=== PATIENT | male | born 1945 | race Caucasian/White ===

== ENCOUNTER 2017-12-30 01:56 | Inpatient (IN) ==
[2017-12-30] MEDS ORDERED: ENOXAPARIN 100 MG/ML SYRINGE SUBCUT STA (02:05)
[2017-12-30] MEDS ORDERED: ASPIRIN 325 MG TABLET PO STA (02:05)
[2017-12-30] MEDS ORDERED: ACETAMINOPHEN 120 MG SUPP RECTAL ONE (04:14)
[2017-12-30 06:16] LABS: Basophils % 0.5 % (0.0-0.8); Eosinophils # 0.2 10*3/uL (0.0-0.87); Hematocrit 42.4 VOL% (42.0-52.0); Hemoglobin 14.4 GM/DL (14.0-18.0); Immature Granulocytes % 0.1 %; Immature Granulocytes Absolute 0.01 #; Lymphocytes % 27.5 % (21.2-54.2); Mean Corpuscular Hemoglobin 31 PG (27-34); Mean Corpuscular Volume 90.6 FL (87-102); Mean Platelet Volume 11.4 FL (9.6-12.0); Monocytes # 0.5 10*3/uL (0.11-0.8); Neutrophils # 4.6 10*3/uL (1.4-7.4); Neutrophils % 62.9 % (38.7-73.9); Platelet Count 171 T/CUMM (130-400); Red Blood Count 4.68 MC/CUMM (3.8-5.5); White Blood Count 7.4 T/CUMM (4-12)
[2017-12-30 06:52] LABS: Calcium 8.1 MG/DL (8.5-10.1); Osmolality,Calculated 283.1 MOS/KG (273-304); Potassium 3.7 MMOL/L (3.5-5.1)
[2017-12-30] MEDS: LISINOPRIL 10 MG TABLET PO SCH (08:18)
[2017-12-30] MEDS: GABAPENTIN 300 MG CAPSULE PO SCH ×2 (08:18→20:34)
[2017-12-30] MEDS ORDERED: ENOXAPARIN 100 MG/ML SYRINGE SUBCUT SCH (09:00)
[2017-12-30 09:50] LABS: CKMB % 2.5 %
[2017-12-30 09:51] LABS: Troponin I Only 0.156 NG/ML (0.00-0.045)
[2017-12-30 12:07] LABS: CKMB % 2.5 %
[2017-12-30 12:14] LABS: Troponin I Only 0.155 NG/ML (0.00-0.045)
[2017-12-30] MEDS ORDERED: WARFARIN 5 MG TABLET PO SCH (18:00)
[2017-12-30] MEDS ORDERED: ASPIRIN EC 325 MG TABLET PO SCH (21:00)
[2017-12-30] MEDS ORDERED: ATORVASTATIN 20 MG TABLET PO SCH (21:00)
[2017-12-31 07:55] VITALS: BP 173/79
[2017-12-31] MEDS ORDERED: PANTOPRAZOLE 40 MG TABLET PO SCH (09:00)
[2017-12-31] MEDS: LISINOPRIL 10 MG TABLET PO SCH (09:00)
[2017-12-31] MEDS ORDERED: VITAMIN E 400 UNIT CAPSULE PO SCH (09:00)
[2017-12-31] MEDS: GABAPENTIN 300 MG CAPSULE PO SCH (09:01)
[2017-12-31] MEDS ORDERED: WARFARIN 2.5 MG TABLET PO SCH (18:00)
== END 2017-12-31 10:14 | disposition home or self-care (01) | DRG 313 ==
LOC: EDUNIT# → EDBD → N.ED 01:56 → N.EDINP 03:32 → N.TELEN 04:16
PROVIDERS: ADMIT Internal Medicine; ATTEND Internal Medicine

== ENCOUNTER 2019-09-14 15:19 | Inpatient (IN) ==
[2019-09-14] MEDS ORDERED: PANTOPRAZOLE 40 MG VIAL IV STA (15:52)
[2019-09-14 16:14] LABS: Basophils % 0.3 % (0.0-0.8); Eosinophils # 0.1 10*3/uL (0.0-0.87); Eosinophils % 0.9 % (0.00-10.9); Hematocrit 37.9 VOL% (42.0-52.0); Hemoglobin 12.3 GM/DL (14.0-18.0); Immature Granulocytes % 0.5 %; Immature Granulocytes Absolute 0.06 #; Lymphocytes # 1.4 10*3/uL (1.4-4.0); Lymphocytes % 11.6 % (21.2-54.2); Mean Corpuscular HGB Conc 32.5 GM/DL (32-36); Mean Corpuscular Volume 97.4 FL (87-102); Mean Platelet Volume 11.5 FL (9.6-12.0); Monocytes % 6.1 % (1.7-12.7); Neutrophils % 80.6 % (38.7-73.9); Platelet Count 168 T/CUMM (130-400); Red Blood Count 3.89 MC/CUMM (3.8-5.5); Red Cell Distribution Width 12.8 % (9.3-17.3); White Blood Count 11.6 T/CUMM (4-12)
[2019-09-14 16:26] LABS: INR 2.8
[2019-09-14 16:29] LABS: PT Patient Result 30.5 SECS (9.6-12.2)
[2019-09-14 16:43] LABS: Alanine Aminotransferase 24 U/L (16-61); Alkaline Phosphatase 59 U/L (45-117); Aspartate Amino Transferase 18 U/L (0-37); Bilirubin,Total < 0.39 MG/DL (0.2-1.0); Blood Urea Nitrogen 54 MG/DL (7-18); Calcium 8.4 MG/DL (8.5-10.1); Estimated Glom Filtration Rate 88 ML/MIN; Glucose 121 MG/DL (74-106); Osmolality,Calculated 296.3 MOS/KG (273-304); Total Protein 5.8 G/DL (6.4-8.3)
[2019-09-14] MEDS ORDERED: LACTATED RINGERS 500 ML IV ONE (16:54)
[2019-09-14] MEDS ORDERED: SODIUM CHLORIDE 0.9% 1,000 ML IV PRN (18:05)
[2019-09-14] MEDS ORDERED: ONDANSETRON 4 MG/2 ML VIAL IV PRN (18:11)
[2019-09-14] MEDS: SODIUM CHLORIDE 0.9% 1,000 ML IV SCH (20:03)
[2019-09-14] MEDS: PANTOPRAZOLE 40 MG VIAL IV SCH (21:06)
[2019-09-14] MEDS: METOCLOPRAMIDE 10 MG/2 ML VIAL IV SCH (21:07)
[2019-09-14] MEDS: ATORVASTATIN 20 MG TABLET PO SCH (21:08)
[2019-09-14] MEDS: GABAPENTIN 300 MG CAPSULE PO SCH (21:08)
[2019-09-14 21:24] LABS: Hemoglobin 11.8 GM/DL (14.0-18.0)
[2019-09-14 22:59] LABS: Apearance,Urine CLEAR (Clear); Bilirubin,Urine Negative (Negative); Blood, Urine Negative (Negative); Glucose,Urine (UA) Negative (Negative); Ketones,Urine Negative (Negative); Mucus,Urine Occasional /LPF (Occasional); Nitrite,Urine Negative (Negative); Protein,Urine Negative; RBC,Urine 1 /HPF (0-4); Urine Color Straw (Yellow); Urine Specific Gravity 1.017 (1.001-1.035); Urine Urobilinogen < 2.0 EU/DL (0.2-1.0); WBC,Urine <1 /HPF (0-6)
[2019-09-15] MEDS: METOCLOPRAMIDE 10 MG/2 ML VIAL IV SCH ×2 (02:21→10:00)
[2019-09-15 04:52] LABS: Basophils % 0.5 % (0.0-0.8); Eosinophils # 0.1 10*3/uL (0.0-0.87); Eosinophils % 1.9 % (0.00-10.9); Hemoglobin 10.3 GM/DL (14.0-18.0); Immature Granulocytes % 0.2 %; Immature Granulocytes Absolute 0.01 #; Lymphocytes # 2.1 10*3/uL (1.4-4.0); Lymphocytes % 36.8 % (21.2-54.2); Mean Corpuscular HGB Conc 32.2 GM/DL (32-36); Mean Platelet Volume 11.6 FL (9.6-12.0); Monocytes % 6.7 % (1.7-12.7); Neutrophils % 53.9 % (38.7-73.9); Platelet Count 166 T/CUMM (130-400); Red Cell Distribution Width 13.1 % (9.3-17.3); White Blood Count 5.7 T/CUMM (4-12)
[2019-09-15 05:12] LABS: INR 1.9; PT Patient Result 20.1 SECS (9.6-12.2)
[2019-09-15 05:29] LABS: Albumin 2.9 G/DL (3.4-5.0); Bilirubin,Total 0.7 MG/DL (0.2-1.0); Calcium 8.2 MG/DL (8.5-10.1); Risk Ratio 3.86; Thyroid Stimulating Hormone 0.65 uIU/ml (0.358-3.74); Total Protein 5.7 G/DL (6.4-8.3)
[2019-09-15] MEDS: GABAPENTIN 300 MG CAPSULE PO SCH ×2 (10:00→21:17)
[2019-09-15] MEDS: PANTOPRAZOLE 40 MG VIAL IV SCH ×2 (10:03→21:17)
[2019-09-15] MEDS: SODIUM CHLORIDE 0.9% 1,000 ML IV SCH ×3 (10:04→21:20)
[2019-09-15] MEDS ORDERED: propofoL 200 MG/20 ML VIAL IV ONE (12:35)
[2019-09-15] MEDS ORDERED: LIDOCAINE 2% 5 ML VIAL ONE (12:36)
[2019-09-15 15:13] LABS: Hematocrit 34.7 VOL% (42.0-52.0)
[2019-09-15] MEDS: ATORVASTATIN 20 MG TABLET PO SCH (21:17)
[2019-09-15 21:24] LABS: Hematocrit 29.9 VOL% (42.0-52.0); Hemoglobin 9.5 GM/DL (14.0-18.0)
[2019-09-16] MEDS: SODIUM CHLORIDE 0.9% 1,000 ML IV SCH ×3 (01:43→17:06)
[2019-09-16 06:48] LABS: Basophils % 0.8 % (0.0-0.8); Eosinophils # 0.3 10*3/uL (0.0-0.87); Eosinophils % 5.3 % (0.00-10.9); Hematocrit 31.3 VOL% (42.0-52.0); Hemoglobin 9.8 GM/DL (14.0-18.0); Immature Granulocytes % 0.2 %; Immature Granulocytes Absolute 0.01 #; Lymphocytes # 1.7 10*3/uL (1.4-4.0); Mean Corpuscular HGB Conc 31.3 GM/DL (32-36); Mean Corpuscular Volume 99.1 FL (87-102); Mean Platelet Volume 11.5 FL (9.6-12.0); Monocytes % 5.9 % (1.7-12.7); Neutrophils % 53.8 % (38.7-73.9); Platelet Count 156 T/CUMM (130-400); Red Blood Count 3.16 MC/CUMM (3.8-5.5); Red Cell Distribution Width 13.2 % (9.3-17.3); White Blood Count 5.1 T/CUMM (4-12)
[2019-09-16 07:01] LABS: INR 2.1
[2019-09-16 07:06] LABS: PT Patient Result 22.5 SECS (9.6-12.2)
[2019-09-16 07:22] LABS: Albumin 2.9 G/DL (3.4-5.0); Bilirubin,Total 1.3 MG/DL (0.2-1.0); Calcium 8.3 MG/DL (8.5-10.1); Total Protein 5.6 G/DL (6.4-8.3)
[2019-09-16] MEDS: PANTOPRAZOLE 40 MG VIAL IV SCH ×2 (08:59→21:28)
[2019-09-16] MEDS: GABAPENTIN 300 MG CAPSULE PO SCH ×2 (08:59→21:28)
[2019-09-16] MEDS ORDERED: BISACODYL 5 MG TABLET PO ONE (12:00)
[2019-09-16] MEDS ORDERED: POLYETHYLENE GLYCOL POWDER 255 GM BOTTLE PO ONE (18:00)
[2019-09-16] MEDS: ATORVASTATIN 20 MG TABLET PO SCH (21:28)
[2019-09-17] MEDS: SODIUM CHLORIDE 0.9% 1,000 ML IV SCH ×2 (03:45→13:55)
[2019-09-17 04:26] LABS: Basophils % 0.6 % (0.0-0.8); Eosinophils # 0.2 10*3/uL (0.0-0.87); Hematocrit 30.7 VOL% (42.0-52.0); Hemoglobin 9.8 GM/DL (14.0-18.0); Immature Granulocytes % 0.2 %; Immature Granulocytes Absolute 0.01 #; Lymphocytes % 38.5 % (21.2-54.2); Mean Corpuscular HGB Conc 31.9 GM/DL (32-36); Mean Corpuscular Volume 97.8 FL (87-102); Mean Platelet Volume 11.2 FL (9.6-12.0); Monocytes % 6.7 % (1.7-12.7); Platelet Count 158 T/CUMM (130-400); Red Blood Count 3.14 MC/CUMM (3.8-5.5); Red Cell Distribution Width 13.1 % (9.3-17.3); White Blood Count 5.2 T/CUMM (4-12)
[2019-09-17 04:38] LABS: PT Patient Result 22.1 SECS (9.6-12.2)
[2019-09-17 04:43] LABS: Albumin 3.2 G/DL (3.4-5.0); Bilirubin,Total 1.3 MG/DL (0.2-1.0); Calcium 8.2 MG/DL (8.5-10.1); Osmolality,Calculated 285.8 MOS/KG (273-304); Total Protein 5.9 G/DL (6.4-8.3)
[2019-09-17] MEDS ORDERED: MORPHINE 4 MG/1 ML VIAL IV PRN (08:33)
[2019-09-17] MEDS: GABAPENTIN 300 MG CAPSULE PO SCH ×2 (09:15→21:43)
[2019-09-17] MEDS: PANTOPRAZOLE 40 MG VIAL IV SCH ×2 (09:15→21:44)
[2019-09-17] MEDS ORDERED: POLYETHYLENE GLYCOL POWDER 255 GM BOTTLE PO ONE (09:30)
[2019-09-17] MEDS: ATORVASTATIN 20 MG TABLET PO SCH (21:43)
[2019-09-18] MEDS: SODIUM CHLORIDE 0.9% 1,000 ML IV SCH ×3 (00:29→23:18)
[2019-09-18 04:43] LABS: Basophils % 0.7 % (0.0-0.8); Eosinophils # 0.2 10*3/uL (0.0-0.87); Eosinophils % 4.4 % (0.00-10.9); Hematocrit 26.7 VOL% (42.0-52.0); Hemoglobin 8.5 GM/DL (14.0-18.0); Immature Granulocytes % 0.2 %; Immature Granulocytes Absolute 0.01 #; Lymphocytes # 1.8 10*3/uL (1.4-4.0); Mean Corpuscular HGB Conc 31.8 GM/DL (32-36); Mean Corpuscular Volume 98.2 FL (87-102); Mean Platelet Volume 11.6 FL (9.6-12.0); Monocytes % 6.4 % (1.7-12.7); Neutrophils % 49.3 % (38.7-73.9); Platelet Count 152 T/CUMM (130-400); Red Blood Count 2.72 MC/CUMM (3.8-5.5); Red Cell Distribution Width 13.3 % (9.3-17.3); White Blood Count 4.5 T/CUMM (4-12)
[2019-09-18 04:58] LABS: INR 2.1
[2019-09-18 05:01] LABS: PT Patient Result 22.8 SECS (9.6-12.2)
[2019-09-18 05:22] LABS: Calcium 7.9 MG/DL (8.5-10.1); Osmolality,Calculated 288.6 MOS/KG (273-304)
[2019-09-18] MEDS ORDERED: LACTATED RINGERS 1,000 ML IV SCH (08:00)
[2019-09-18] MEDS: PANTOPRAZOLE 40 MG VIAL IV SCH ×2 (08:39→20:26)
[2019-09-18] MEDS: GABAPENTIN 300 MG CAPSULE PO SCH ×2 (08:41→20:26)
[2019-09-18] MEDS ORDERED: propofoL 200 MG/20 ML VIAL IV ONE (09:00)
[2019-09-18] MEDS ORDERED: LIDOCAINE 2% 5 ML VIAL ONE (09:00)
[2019-09-18 10:42] LABS: INR 1.9; PT Patient Result 20.7 SECS (9.6-12.2)
[2019-09-18 14:35] LABS: INR 1.8; PT Patient Result 19.9 SECS (9.6-12.2)
[2019-09-18] MEDS ORDERED: HEPARIN DRIP 25,000 UNITS/500 ML PREMIX IV SCH (16:00)
[2019-09-18] MEDS ORDERED: WARFARIN 10 MG TABLET PO ONE (18:00)
[2019-09-18] MEDS: ATORVASTATIN 20 MG TABLET PO SCH (20:25)
[2019-09-19 05:21] LABS: Basophils % 0.4 % (0.0-0.8); Eosinophils # 0.2 10*3/uL (0.0-0.87); Eosinophils % 3.7 % (0.00-10.9); Hematocrit 24.6 VOL% (42.0-52.0); Immature Granulocytes % 0.4 %; Immature Granulocytes Absolute 0.02 #; Lymphocytes # 1.6 10*3/uL (1.4-4.0); Lymphocytes % 30.2 % (21.2-54.2); Mean Corpuscular HGB Conc 32.5 GM/DL (32-36); Mean Corpuscular Volume 96.9 FL (87-102); Mean Platelet Volume 11.7 FL (9.6-12.0); Monocytes % 5.9 % (1.7-12.7); Neutrophils % 59.4 % (38.7-73.9); Platelet Count 136 T/CUMM (130-400); Red Blood Count 2.54 MC/CUMM (3.8-5.5); Red Cell Distribution Width 13.4 % (9.3-17.3); White Blood Count 5.4 T/CUMM (4-12)
[2019-09-19 05:27] LABS: INR 1.8; PT Patient Result 19.4 SECS (9.6-12.2)
[2019-09-19 05:54] LABS: Calcium 7.9 MG/DL (8.5-10.1); Osmolality,Calculated 285.8 MOS/KG (273-304)
[2019-09-19 07:56] VITALS: BP 123/57
[2019-09-19] MEDS: PANTOPRAZOLE 40 MG VIAL IV SCH (08:42)
[2019-09-19] MEDS: GABAPENTIN 300 MG CAPSULE PO SCH (08:42)
[2019-09-19] MEDS: SODIUM CHLORIDE 0.9% 1,000 ML IV SCH (11:24)
[2019-09-19] MEDS ORDERED: WARFARIN 2.5 MG TABLET PO SCH (18:00)
== END 2019-09-19 11:23 | disposition home or self-care (01) | DRG 813 ==
LOC: EDUNIT# → EDBD → N.ED 15:19 → SUATTDRO 17:33 → N.EDINP 17:33 → N.2E 18:59
PROVIDERS: ADMIT Internal Medicine; ATTEND Internal Medicine

== ENCOUNTER 2020-03-10 07:43 | Inpatient (IN) ==
[2020-03-10] MEDS ORDERED: ONDANSETRON 4 MG/2 ML VIAL IV STA (08:08)
[2020-03-10] MEDS ORDERED: PANTOPRAZOLE 40 MG VIAL IV STA (08:08)
[2020-03-10] MEDS ORDERED: SODIUM CHLORIDE 0.9% 1,000 ML IV STA (08:08)
[2020-03-10 08:18] LABS: Basophils % 0.4 % (0.0-0.8); Eosinophils % 0.4 % (0.00-10.9); Hematocrit 32.1 VOL% (42.0-52.0); Hemoglobin 10.1 GM/DL (14.0-18.0); Immature Granulocytes % 0.4 %; Immature Granulocytes Absolute 0.04 #; Lymphocytes # 1.4 10*3/uL (1.4-4.0); Lymphocytes % 13.8 % (21.2-54.2); Mean Corpuscular HGB Conc 31.5 GM/DL (32-36); Mean Corpuscular Volume 96.7 FL (87-102); Mean Platelet Volume 11.7 FL (9.6-12.0); Monocytes % 4.5 % (1.7-12.7); Neutrophils % 80.5 % (38.7-73.9); Platelet Count 170 T/CUMM (130-400); Red Blood Count 3.32 MC/CUMM (3.8-5.5); Red Cell Distribution Width 15.2 % (9.3-17.3); White Blood Count 10.5 T/CUMM (4-12)
[2020-03-10 08:29] LABS: INR 3.5; PT Patient Result 35.6 SECS (9.8-11.9); Partial Thromboplastin Time 27.6 SECS (23.9-33.8)
[2020-03-10 08:47] LABS: Bilirubin,Total 0.4 MG/DL (0.2-1.0); Calcium 8.3 MG/DL (8.5-10.1); Total Protein 5.8 G/DL (6.4-8.3)
[2020-03-10] MEDS ORDERED: hydrALAZINE 20 MG/1 ML VIAL IV PRN (11:19)
[2020-03-10] MEDS ORDERED: DEXTROSE 50% 25 GM/50 ML VIAL IV PRN (11:19)
[2020-03-10] MEDS ORDERED: ACETAMINOPHEN 325 MG TABLET PO PRN (11:19)
[2020-03-10] MEDS ORDERED: GLUCAGON 1 MG VIAL IM PRN (11:19)
[2020-03-10] MEDS ORDERED: DOCUSATE SODIUM 100 MG CAPSULE PO PRN (11:19)
[2020-03-10] MEDS ORDERED: guaiFENesin/DM ER 600-30 MG TABLET PO PRN (11:19)
[2020-03-10] MEDS ORDERED: ONDANSETRON 4 MG/2 ML VIAL IV PRN (11:19)
[2020-03-10] MEDS ORDERED: GABAPENTIN 300 MG CAPSULE PO PRN (11:24)
[2020-03-10] MEDS ORDERED: DEXTROSE 5% NACL 0.45% 1,000 ML IV SCH (11:30)
[2020-03-10 12:07] LABS: Risk Ratio 3.19; Thyroid Stimulating Hormone 2.23 uIU/ml (0.358-3.74); VLDL CHOLESTEROL 29.8 MG/DL
[2020-03-10 13:50] LABS: Hematocrit 30.7 VOL% (42.0-52.0); Hemoglobin 9.7 GM/DL (14.0-18.0)
[2020-03-10] MEDS ORDERED: LORazepam 2 MG/1 ML VIAL IV PRN (16:26)
[2020-03-10] MEDS: MULTIVITAMIN INJ 10 ML in SODIUM CHLORIDE 0.9% 1,000 ML IV SCH (17:59)
[2020-03-10] MEDS: THIAMINE 200 MG/2 ML VIAL IV SCH (17:59)
[2020-03-10] MEDS ORDERED: MAGNESIUM CITRATE 300 ML BOTTLE PO ONE (18:00)
[2020-03-10] MEDS: FOLIC ACID INJ 1 MG in SYRINGE 1 EACH IV SCH (18:20)
[2020-03-10 19:00] LABS: Apearance,Urine CLEAR (Clear); Bilirubin,Urine Negative (Negative); Blood, Urine Negative (Negative); Glucose,Urine (UA) Negative (Negative); Ketones,Urine Negative (Negative); Mucus,Urine Occasional /LPF (Occasional); Nitrite,Urine Negative (Negative); Protein,Urine Negative; Urine Color Straw (Yellow); Urine Specific Gravity 1.015 (1.001-1.035); Urine Urobilinogen < 2.0 EU/DL (0.2-1.0)
[2020-03-10 19:23] LABS: Hematocrit 26.7 VOL% (42.0-52.0)
[2020-03-10] MEDS: PANTOPRAZOLE 40 MG VIAL IV SCH (20:21)
[2020-03-11 05:04] LABS: Basophils # 0.1 10*3/uL (0.0-0.2); Basophils % 0.7 % (0.0-0.8); Eosinophils # 0.1 10*3/uL (0.0-0.87); Hematocrit 26.4 VOL% (42.0-52.0); Hemoglobin 8.2 GM/DL (14.0-18.0); Hemoglobin 8.3 GM/DL (14.0-18.0); Immature Granulocytes % 0.3 %; Immature Granulocytes Absolute 0.02 #; Lymphocytes # 2.3 10*3/uL (1.4-4.0); Lymphocytes % 33.1 % (21.2-54.2); Mean Corpuscular HGB Conc 31.1 GM/DL (32-36); Mean Corpuscular Volume 97.4 FL (87-102); Mean Platelet Volume 11.8 FL (9.6-12.0); Neutrophils % 58.9 % (38.7-73.9); Platelet Count 166 T/CUMM (130-400); Red Blood Count 2.71 MC/CUMM (3.8-5.5); Red Cell Distribution Width 15.7 % (9.3-17.3)
[2020-03-11 05:12] LABS: INR 3.4
[2020-03-11 05:31] LABS: Calcium 7.9 MG/DL (8.5-10.1); Osmolality,Calculated 295.7 MOS/KG (273-304)
[2020-03-11] MEDS ORDERED: SODIUM CHLORIDE 0.9% 1,000 ML IV PRN (07:27)
[2020-03-11] MEDS: PANTOPRAZOLE 40 MG VIAL IV SCH ×2 (08:56→20:54)
[2020-03-11] MEDS: THIAMINE 200 MG/2 ML VIAL IV SCH (08:56)
[2020-03-11] MEDS: VITAMIN E 400 UNIT CAPSULE PO SCH (08:57)
[2020-03-11] MEDS: FOLIC ACID INJ 1 MG in SYRINGE 1 EACH IV SCH (08:57)
[2020-03-11] MEDS: FUROSEMIDE 40 MG TABLET PO SCH (08:57)
[2020-03-11] MEDS: ATORVASTATIN 20 MG TABLET PO SCH (08:57)
[2020-03-11] MEDS ORDERED: lisinopriL 10 MG TABLET PO SCH (09:00)
[2020-03-11] MEDS ORDERED: VIT C S CHERRY CELERY GRAPE SD PO SCH (09:00)
[2020-03-11] MEDS: MULTIVITAMIN INJ 10 ML in SODIUM CHLORIDE 0.9% 1,000 ML IV SCH (17:46)
[2020-03-12 06:16] LABS: Basophils % 0.5 % (0.0-0.8); Eosinophils # 0.2 10*3/uL (0.0-0.87); Eosinophils % 3.8 % (0.00-10.9); Hematocrit 30.4 VOL% (42.0-52.0); Hemoglobin 9.8 GM/DL (14.0-18.0); Immature Granulocytes % 0.4 %; Immature Granulocytes Absolute 0.02 #; Mean Corpuscular HGB Conc 32.2 GM/DL (32-36); Mean Corpuscular Volume 93.3 FL (87-102); Mean Platelet Volume 12.9 FL (9.6-12.0); Monocytes % 5.7 % (1.7-12.7); Neutrophils % 52.6 % (38.7-73.9); Red Blood Count 3.26 MC/CUMM (3.8-5.5); Red Cell Distribution Width 15.7 % (9.3-17.3); White Blood Count 5.5 T/CUMM (4-12)
[2020-03-12 06:19] LABS: INR 1.8
[2020-03-12 06:23] LABS: Platelet Count 82 T/CUMM (130-400)
[2020-03-12 06:46] LABS: Calcium 7.9 MG/DL (8.5-10.1)
[2020-03-12 06:47] LABS: Hypochromasia 1+; Ovalocytes Slight
[2020-03-12] MEDS ORDERED: LIDOCAINE 2% 5 ML VIAL ONE (09:00)
[2020-03-12] MEDS ORDERED: propofoL 200 MG/20 ML VIAL IV ONE (09:00)
[2020-03-12] MEDS: LACTATED RINGERS 1,000 ML IV SCH (09:01)
[2020-03-12] MEDS: VITAMIN E 400 UNIT CAPSULE PO SCH (10:09)
[2020-03-12] MEDS: allopurinoL 300 MG TABLET PO SCH (10:09)
[2020-03-12] MEDS: FUROSEMIDE 40 MG TABLET PO SCH (10:09)
[2020-03-12] MEDS: ATORVASTATIN 20 MG TABLET PO SCH (10:09)
[2020-03-12] MEDS: PANTOPRAZOLE 40 MG VIAL IV SCH ×2 (12:17→20:55)
[2020-03-12] MEDS: THIAMINE 200 MG/2 ML VIAL IV SCH (12:18)
[2020-03-12] MEDS: FOLIC ACID INJ 1 MG in SYRINGE 1 EACH IV SCH (12:18)
[2020-03-12] MEDS: MULTIVITAMIN INJ 10 ML in SODIUM CHLORIDE 0.9% 1,000 ML IV SCH (17:35)
[2020-03-12] MEDS ORDERED: CALCIUM CARBONATE CHEW 500 MG TABLET PO PRN (17:52)
[2020-03-13 06:14] LABS: Basophils # 0.1 10*3/uL (0.0-0.2); Eosinophils # 0.2 10*3/uL (0.0-0.87); Eosinophils % 4.2 % (0.00-10.9); Hematocrit 30.9 VOL% (42.0-52.0); Hemoglobin 10.2 GM/DL (14.0-18.0); Immature Granulocytes % 0.2 %; Immature Granulocytes Absolute 0.01 #; Lymphocytes # 1.3 10*3/uL (1.4-4.0); Lymphocytes % 25.9 % (21.2-54.2); Mean Corpuscular Volume 93.6 FL (87-102); Mean Platelet Volume 12.2 FL (9.6-12.0); Monocytes % 7.4 % (1.7-12.7); Neutrophils % 61.3 % (38.7-73.9); Platelet Count 154 T/CUMM (130-400); Red Cell Distribution Width 15.1 % (9.3-17.3)
[2020-03-13 06:25] LABS: INR 1.2; PT Patient Result 12.9 SECS (9.8-11.9)
[2020-03-13 06:35] LABS: Calcium 8.1 MG/DL (8.5-10.1)
[2020-03-13] MEDS: FUROSEMIDE 40 MG TABLET PO SCH (09:51)
[2020-03-13] MEDS: VITAMIN E 400 UNIT CAPSULE PO SCH (09:51)
[2020-03-13] MEDS: PANTOPRAZOLE 40 MG VIAL IV SCH ×2 (09:52→21:51)
[2020-03-13] MEDS: ATORVASTATIN 20 MG TABLET PO SCH (09:52)
[2020-03-13] MEDS: HEPARIN DRIP 25,000 UNITS/500 ML PREMIX IV SCH (10:25)
[2020-03-13] MEDS: LACTATED RINGERS 1,000 ML IV SCH (10:29)
[2020-03-13] MEDS: FOLIC ACID INJ 1 MG in SYRINGE 1 EACH IV SCH (10:29)
[2020-03-13] MEDS: THIAMINE 200 MG/2 ML VIAL IV SCH (10:30)
[2020-03-14 05:15] LABS: Basophils # 0.1 10*3/uL (0.0-0.2); Basophils % 1.1 % (0.0-0.8); Eosinophils # 0.2 10*3/uL (0.0-0.87); Eosinophils % 4.4 % (0.00-10.9); Hematocrit 30.1 VOL% (42.0-52.0); Hemoglobin 9.9 GM/DL (14.0-18.0); Lymphocytes # 1.7 10*3/uL (1.4-4.0); Lymphocytes % 35.4 % (21.2-54.2); Mean Corpuscular HGB Conc 32.9 GM/DL (32-36); Mean Corpuscular Volume 93.5 FL (87-102); Mean Platelet Volume 11.5 FL (9.6-12.0); Monocytes % 7.2 % (1.7-12.7); Neutrophils % 51.9 % (38.7-73.9); Platelet Count 157 T/CUMM (130-400); Red Blood Count 3.22 MC/CUMM (3.8-5.5); Red Cell Distribution Width 14.8 % (9.3-17.3); White Blood Count 4.7 T/CUMM (4-12)
[2020-03-14 05:29] LABS: INR 1.1; PT Patient Result 11.7 SECS (9.8-11.9)
[2020-03-14 05:32] LABS: Calcium 8.2 MG/DL (8.5-10.1)
[2020-03-14 06:09] LABS: Hypochromasia 1+
[2020-03-14 06:10] LABS: Microcytosis 1+; Ovalocytes Slight; Platelet Estimate Adequate
[2020-03-14 08:13] VITALS: BP 131/64
[2020-03-14] MEDS: PANTOPRAZOLE 40 MG VIAL IV SCH (08:24)
[2020-03-14] MEDS: VITAMIN E 400 UNIT CAPSULE PO SCH (08:24)
[2020-03-14] MEDS: FUROSEMIDE 40 MG TABLET PO SCH (08:24)
[2020-03-14] MEDS: allopurinoL 300 MG TABLET PO SCH (08:24)
[2020-03-14] MEDS: ATORVASTATIN 20 MG TABLET PO SCH (08:24)
[2020-03-14] MEDS ORDERED: MULTIVITAMIN (CENTRUM) TABLET PO SCH (09:00)
[2020-03-14] MEDS ORDERED: FOLIC ACID 1 MG TABLET PO SCH (09:00)
[2020-03-14] MEDS ORDERED: THIAMINE 100 MG TABLET PO SCH (09:00)
[2020-03-14] MEDS: HEPARIN DRIP 25,000 UNITS/500 ML PREMIX IV SCH (09:12)
[2020-03-14] MEDS ORDERED: WARFARIN 5 MG TABLET PO SCH (18:00)
[2020-03-14] MEDS ORDERED: WARFARIN 7.5 MG TABLET PO SCH (18:00)
== END 2020-03-14 11:28 | disposition home or self-care (01) | DRG 813 ==
LOC: EDUNIT# → EDBD → N.ED 07:43 → N.EDINP 10:52 → N.5E 12:01
PROVIDERS: ADMIT Internal Medicine; ATTEND Internal Medicine

== ENCOUNTER 2020-11-14 14:16 | Inpatient (IN) ==
[2020-11-14 15:18] LABS: Basophils % 0.3 % (0.0-0.8); Eosinophils # 0.1 10*3/uL (0.0-0.87); Eosinophils % 1.2 % (0.00-10.9); Hematocrit 41.5 VOL% (42.0-52.0); Hemoglobin 13.7 GM/DL (14.0-18.0); Immature Granulocytes % 0.2 %; Immature Granulocytes Absolute 0.02 #; Lymphocytes # 1.2 10*3/uL (1.4-4.0); Lymphocytes % 14.2 % (21.2-54.2); Mean Corpuscular Volume 96.7 FL (87-102); Mean Platelet Volume 11.7 FL (9.6-12.0); Monocytes % 5.3 % (1.7-12.7); Neutrophils % 78.8 % (38.7-73.9); Platelet Count 169 T/CUMM (130-400); Red Blood Count 4.29 MC/CUMM (3.8-5.5); Red Cell Distribution Width 13.4 % (9.3-17.3); White Blood Count 8.7 T/CUMM (4-12)
[2020-11-14 15:41] LABS: Calcium 8.1 MG/DL (8.5-10.1); Osmolality,Calculated 284.1 MOS/KG (273-304); Potassium 3.7 MMOL/L (3.5-5.1)
[2020-11-14 16:03] LABS: PT Patient Result 21.4 SECS (10.5-12.0)
[2020-11-14] MEDS ORDERED: MAGNESIUM SULF RIDER 4 GM/100 ML PREMIX IV PRN (16:20)
[2020-11-14] MEDS ORDERED: MORPHINE 4 MG/1 ML VIAL IV PRN (16:20)
[2020-11-14] MEDS ORDERED: MAGNESIUM SULF RIDER 2 GM/50 ML PREMIX IV PRN (16:20)
[2020-11-14] MEDS ORDERED: GABAPENTIN 300 MG CAPSULE PO PRN (16:22)
[2020-11-14] MEDS ORDERED: NITROGLYCERIN SL 0.4 MG TABLET SL PRN (16:23)
[2020-11-14] MEDS ORDERED: ONDANSETRON 4 MG/2 ML VIAL IV PRN (16:45)
[2020-11-14] MEDS: SODIUM CHLORIDE 0.45% 1,000 ML IV SCH (19:03)
[2020-11-14] MEDS: ASPIRIN EC 325 MG TABLET PO SCH (20:32)
[2020-11-14] MEDS: PANTOPRAZOLE 40 MG TABLET PO SCH (20:32)
[2020-11-14 21:10] LABS: Troponin I 0.995 NG/ML (0.00-0.045)
[2020-11-15 00:10] LABS: CKMB % 6.2 %
[2020-11-15 00:50] LABS: Troponin I 1.19 NG/ML (0.00-0.045)
[2020-11-15 05:25] LABS: Basophils % 0.7 % (0.0-0.8); Eosinophils # 0.2 10*3/uL (0.0-0.87); Hematocrit 37.9 VOL% (42.0-52.0); Hemoglobin 12.5 GM/DL (14.0-18.0); Immature Granulocytes % 0.2 %; Immature Granulocytes Absolute 0.01 #; Lymphocytes # 2.1 10*3/uL (1.4-4.0); Mean Corpuscular Volume 96.7 FL (87-102); Mean Platelet Volume 11.5 FL (9.6-12.0); Monocytes % 6.4 % (1.7-12.7); Neutrophils % 52.7 % (38.7-73.9); Platelet Count 137 T/CUMM (130-400); Red Blood Count 3.92 MC/CUMM (3.8-5.5); Red Cell Distribution Width 13.5 % (9.3-17.3); White Blood Count 5.6 T/CUMM (4-12)
[2020-11-15 05:34] LABS: PT Patient Result 21.6 SECS (10.5-12.0)
[2020-11-15 05:45] LABS: Calcium 7.9 MG/DL (8.5-10.1); Osmolality,Calculated 281.3 MOS/KG (273-304); Potassium 3.8 MMOL/L (3.5-5.1)
[2020-11-15 05:46] LABS: Hypochromasia 1+; Microcytosis 1+; Platelet Estimate Normal
[2020-11-15 05:51] LABS: Risk Ratio 2.27; VLDL CHOLESTEROL 15.8 MG/DL
[2020-11-15] MEDS: ATORVASTATIN 20 MG TABLET PO SCH (08:57)
[2020-11-15] MEDS: VITAMIN E 400 UNIT CAPSULE PO SCH (08:57)
[2020-11-15] MEDS: PANTOPRAZOLE 40 MG TABLET PO SCH ×2 (08:58→20:20)
[2020-11-15] MEDS: lisinopriL 10 MG TABLET PO SCH (08:58)
[2020-11-15] MEDS ORDERED: PANTOPRAZOLE 40 MG TABLET PO SCH (09:00)
[2020-11-15] MEDS ORDERED: WARFARIN 2.5 MG TABLET PO SCH (09:00)
[2020-11-15] MEDS ORDERED: YEAST PO SCH (09:00)
[2020-11-15] MEDS: FUROSEMIDE 40 MG TABLET PO SCH (09:01)
[2020-11-15 10:15] LABS: CKMB % 5.9 %
[2020-11-15 10:26] LABS: Troponin I 1.31 NG/ML (0.00-0.045)
[2020-11-15 14:39] LABS: CKMB % 5.7 %
[2020-11-15 14:41] LABS: Troponin I 1.12 NG/ML (0.00-0.045)
[2020-11-15] MEDS: SODIUM CHLORIDE 0.45% 1,000 ML IV SCH (14:47)
[2020-11-15] MEDS: ASPIRIN EC 325 MG TABLET PO SCH (20:20)
[2020-11-16 06:12] LABS: INR 2.2
[2020-11-16] MEDS ORDERED: WARFARIN 5 MG TABLET PO SCH (09:00)
[2020-11-16] MEDS: VITAMIN E 400 UNIT CAPSULE PO SCH (09:26)
[2020-11-16] MEDS: lisinopriL 10 MG TABLET PO SCH (09:26)
[2020-11-16] MEDS: PANTOPRAZOLE 40 MG TABLET PO SCH ×2 (09:26→20:01)
[2020-11-16] MEDS: ATORVASTATIN 20 MG TABLET PO SCH (09:26)
[2020-11-16] MEDS: FUROSEMIDE 40 MG TABLET PO SCH (09:28)
[2020-11-16] MEDS: SODIUM CHLORIDE 0.45% 1,000 ML IV SCH (09:37)
[2020-11-16] MEDS: allopurinoL 300 MG TABLET PO SCH (10:01)
[2020-11-16] MEDS: ACETAMINOPHEN 325 MG TABLET PO PRN (11:15)
[2020-11-16] MEDS: ASPIRIN EC 325 MG TABLET PO SCH (20:01)
[2020-11-17 05:09] LABS: Basophils % 0.7 % (0.0-0.8); Eosinophils # 0.2 10*3/uL (0.0-0.87); Eosinophils % 2.7 % (0.00-10.9); Hematocrit 41.1 VOL% (42.0-52.0); Hemoglobin 13.6 GM/DL (14.0-18.0); Immature Granulocytes % 0.2 %; Immature Granulocytes Absolute 0.01 #; Lymphocytes # 1.8 10*3/uL (1.4-4.0); Lymphocytes % 30.1 % (21.2-54.2); Mean Corpuscular HGB Conc 33.1 GM/DL (32-36); Mean Corpuscular Volume 94.9 FL (87-102); Mean Platelet Volume 11.7 FL (9.6-12.0); Monocytes % 7.9 % (1.7-12.7); Neutrophils % 58.4 % (38.7-73.9); Platelet Count 156 T/CUMM (130-400); Red Blood Count 4.33 MC/CUMM (3.8-5.5); Red Cell Distribution Width 13.2 % (9.3-17.3)
[2020-11-17 05:18] LABS: INR 2.1; PT Patient Result 22.4 SECS (10.5-12.0)
[2020-11-17 05:23] LABS: Calcium 8.3 MG/DL (8.5-10.1)
[2020-11-17 05:30] LABS: Osmolality,Calculated 276.4 MOS/KG (273-304); Potassium 3.6 MMOL/L (3.5-5.1)
[2020-11-17] MEDS ORDERED: ceFAZolin 1,000 MG VIAL IRRIG ONE (08:23)
[2020-11-17] MEDS ORDERED: DIAZEPAM 5 MG TABLET PO ONE (08:23)
[2020-11-17] MEDS ORDERED: diphenhydrAMINE CAP 25 MG CAPSULE PO ONE (08:23)
[2020-11-17] MEDS: lisinopriL 10 MG TABLET PO SCH (09:27)
[2020-11-17] MEDS: ATORVASTATIN 20 MG TABLET PO SCH (09:27)
[2020-11-17] MEDS: PANTOPRAZOLE 40 MG TABLET PO SCH ×2 (09:27→20:35)
[2020-11-17] MEDS ORDERED: LIDOCAINE 1%/EPI INJ 20 ML VIAL ONE ×2 (10:04→10:06)
[2020-11-17] MEDS ORDERED: TISSUE ADHESIVE 1 EACH APPLICATOR TOP ONE (10:04)
[2020-11-17] MEDS ORDERED: HEPARIN/NACL 0.9% 2 UNITS/ML 1,000 UNIT/500 ML BAG IV ONE (10:04)
[2020-11-17] MEDS ORDERED: MIDAZOLAM 2 MG/2 ML VIAL ONE (10:05)
[2020-11-17] MEDS ORDERED: HYDROmorphone 2 MG/1 ML VIAL ONE (10:05)
[2020-11-17] MEDS ORDERED: ceFAZolin 1,000 MG VIAL ONE ×2 (10:05)
[2020-11-17] MEDS: SODIUM CHLORIDE 0.9% 1,000 ML IV SCH (11:37)
[2020-11-17] MEDS: FUROSEMIDE 40 MG TABLET PO SCH (13:45)
[2020-11-17] MEDS: VITAMIN E 400 UNIT CAPSULE PO SCH (14:37)
[2020-11-17] MEDS: ASPIRIN EC 325 MG TABLET PO SCH (20:35)
[2020-11-18] MEDS: ACETAMINOPHEN 325 MG TABLET PO PRN (00:57)
[2020-11-18 05:33] LABS: INR 1.6; PT Patient Result 17.7 SECS (10.5-12.0)
[2020-11-18 05:53] LABS: Calcium 8.7 MG/DL (8.5-10.1); Osmolality,Calculated 277.4 MOS/KG (273-304); Potassium 4.1 MMOL/L (3.5-5.1)
[2020-11-18 08:15] VITALS: BP 171/96
[2020-11-18] MEDS: allopurinoL 300 MG TABLET PO SCH (09:44)
[2020-11-18] MEDS: VITAMIN E 400 UNIT CAPSULE PO SCH (09:44)
[2020-11-18] MEDS: ATORVASTATIN 20 MG TABLET PO SCH (09:45)
[2020-11-18] MEDS: lisinopriL 10 MG TABLET PO SCH (09:45)
[2020-11-18] MEDS: PANTOPRAZOLE 40 MG TABLET PO SCH (09:45)
[2020-11-18] MEDS: FUROSEMIDE 40 MG TABLET PO SCH (09:47)
[2020-11-18] MEDS: SODIUM CHLORIDE 0.9% 1,000 ML IV SCH (10:19)
== END 2020-11-18 10:31 | disposition home or self-care (01) | DRG 242 ==
LOC: N.EDINP 14:16 → N.ED 14:16 → N.TELEN 17:16
PROVIDERS: ADMIT Internal Medicine Cardiovascular Disease; ATTEND Internal Medicine Cardiovascular Disease
PROC: [UNRECOGNIZED PROCEDURE] (2020-11-17 11:15)